=== PATIENT | female | born 1965 | race Caucasian/White ===

== ENCOUNTER → 2016-07-23 | Outpatient (CLI) | payer SELFPAY | END | disposition home or self-care (01) | LOC: YCFC.O 08:08 | PROVIDERS: ATTEND Anesthesiology Pain Medicine | DX: Z79.891 Long term (current) use of opiate analgesic (principal) ==

== ENCOUNTER → 2016-12-25 | Outpatient (CLI) | payer SELFPAY | END | disposition home or self-care (01) | LOC: YCFC.O 15:07 | PROVIDERS: ATTEND Anesthesiology Pain Medicine | DX: Z79.891 Long term (current) use of opiate analgesic (principal) ==

== ENCOUNTER → 2017-01-26 | Outpatient (CLI) | payer SELFPAY | END | disposition home or self-care (01) | LOC: YCFC.O 07:01 | PROVIDERS: ATTEND Nurse Practitioner Family | DX: E78.2 Mixed hyperlipidemia (principal); I10 Essential (primary) hypertension ==

== ENCOUNTER → 2017-03-19 | Outpatient (CLI) | payer SELFPAY | END | disposition home or self-care (01) | LOC: YCFC.O 15:21 | PROVIDERS: ATTEND Anesthesiology Pain Medicine | DX: Z79.891 Long term (current) use of opiate analgesic (principal) ==

== ENCOUNTER 2017-06-14 16:35 | Emergency (ER) | payer SELFPAY ==
--- NOTE | 2017-06-14 17:18 | ED.PDOC ---
History of Present Illness - General Chief Complaint: Abdominal Pain Stated Complaint: Abdominal discomfort Time Seen by Provider: 06/14/17 16:36 Information Source: patient Exam Limitations: no limitations - History of Present Illness Abdominal Pain Onset Location: RUQ, epigastric, flank Pain Radiation: no radiation, back Quality: moderate, sharpness Timing/Duration: days - 3 DAYS Improving Factors: nothing Worsening Factors: movement, other - PALPATION Associated Symptoms: nausea/vomiting Review of Systems - Review of Systems Constitutional: Denies: chills, diaphoresis, fever, malaise, weakness EENTM: Denies: double vision, ear discharge, throat swelling, mouth swelling Respiratory: Denies: cough, short of breath Cardiology: Denies: chest pain, palpitations, syncope Gastrointestinal/Abdominal: States: abdominal pain, nausea, vomiting. Denies: constipation, diarrhea Genitourinary: Denies: discharge, dysuria, frequency, hematuria Musculoskeletal: Denies: joint pain, joint swelling Skin: Denies: change in color, dryness Neurological: Denies: headache, numbness, paresthesia Endocrine: Denies: excessive sweating, increased hunger, increased thirst, increased urine Hematologic/Lymphatic: Denies: anemia, blood clots, easy bleeding, easy bruising All other Systems: Reviewed and Negative Past Medical History (General) - Patient Medical History Hx Stroke: No Hx Asthma: No Hx of COPD: No Hx Cardiac Disorders: Yes Hx Congestive Heart Failure: No Hx Pacemaker: No Hx Hypertension: Yes Hx Diabetes: Yes Hx MRSA: No Surgical History: appendectomy, tonsillectomy, other - Vaccination History Hx Influenza Vaccination: No Hx Pneumococcal Vaccination: No - Social History Hx Tobacco Use: Yes Family Medical History - Family History Mother Family History: Unknown Living Status: Unknown Physical Exam - Physical Exam General Appearance: Alert, Anxious, No apparent distress Eyes, Ears, Nose, Throat Exam: normal ENT inspection Neck: non-tender, full range of motion, supple, normal inspection Respiratory: chest non-tender, lungs clear, normal breath sounds, no respiratory distress, no accessory muscle use Cardiovascular/Chest: normal peripheral pulses, regular rate, rhythm Gastrointestinal/Abdominal: normal bowel sounds, soft, tenderness - MILD TENDERNESS TO THE RUQ/EPIGASTRIC REGION. 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 WOULD CONSIDER HEPATITIS, BILIARY DISEASE, ULCER, PANCREATITIS, UTI, PYELO, GASTRITIS, ENTERITIS, URETERAL COLIC. SHE HAS A NON SURGICAL ABD EXAM AT THIS TIME. 06/14/17 22:07 LABS ARE RELATIVELY UNREMARKABLE EXCEPT FOR THE UTI. WILL PUT ON MACROBID. - Results/Orders Results/Orders: Laboratory Results - last 24 hr 06/14/17 06/14/17 06/14/17 17:16 17:16 17:16 WBC 6.8 RBC 4.77 Hgb 14.5 Hct 41.9 MCV 87.9 MCH 30.3 MCHC 34.5 RDW 14.2 Plt Count 280 MPV 9.0 Absolute Neuts (auto) 2.20 Absolute Lymphs (auto) 3.70 H Absolute Monos (auto) 0.60 Absolute Eos (auto) 0.20 Absolute Basos (auto) 0.10 Neutrophils % 33.1 L Lymphocytes % 53.7 H Monocytes % 9.1 H Eosinophils % 3.0 Basophils % 1.1 Sodium 136 Potassium 3.9 Chloride 102 Carbon Dioxide 25 Anion Gap 12.9 BUN 10 Creatinine 0.99 BUN/Creatinine Ratio 10.1 Random Glucose 112 H Serum Osmolality 271.8 L Lactic Acid 0.8 Calcium 9.3 Total Bilirubin 0.3 AST 17 ALT 15 Alkaline Phosphatase 81 Serum Total Protein 7.1 Albumin 3.9 Globulin 3.2 Albumin/Globulin Ratio 1.2 Lipase 23 Urine Color Urine Appearance Urine pH Ur Specific [place] Urine Protein Urine Glucose (UA) Urine Ketones Urine Blood Urine Nitrite Urine Bilirubin Urine Urobilinogen Ur Leukocyte Esterase Urine RBC Urine WBC Ur Epithelial Cells Urine Bacteria 06/14/17 21:28 WBC RBC Hgb Hct MCV MCH MCHC RDW Plt Count MPV Absolute Neuts (auto) Absolute Lymphs (auto) Absolute Monos (auto) Absolute Eos (auto) Absolute Basos (auto) Neutrophils % Lymphocytes % Monocytes % Eosinophils % Basophils % Sodium Potassium Chloride Carbon Dioxide Anion Gap BUN Creatinine BUN/Creatinine Ratio Random Glucose Serum Osmolality Lactic Acid Calcium Total Bilirubin AST ALT Alkaline Phosphatase Serum Total Protein Albumin Globulin Albumin/Globulin Ratio Lipase Urine Color Yellow Urine Appearance Clear Urine pH 6.0 Ur Specific [place] <= 1.005 Urine Protein Negative Urine Glucose (UA) Negative Urine Ketones Negative Urine Blood Negative Urine Nitrite Negative Urine Bilirubin Negative Urine Urobilinogen 0.2 Ur Leukocyte Esterase Trace H Urine RBC 0-1 Urine WBC 1-3 Ur Epithelial Cells 3-5 Urine Bacteria 1+ Departure - Departure Clinical Impression: Abdominal pain Qualifiers: Abdominal location: generalized Qualified Code(s): R10.84 - Generalized abdominal pain UTI (urinary tract infection) Qualifiers: Urinary tract infection type: acute cystitis Hematuria presence: without hematuria Qualified Code(s): N30.00 - Acute cystitis without hematuria Clinical Impression: (Ruled Out): Pancreatitis, Appendicitis, Enteritis, Diarrhea, Acute colitis, Cholecystitis Time of Disposition: 22:04 Disposition: Discharge to Home or Self Care Condition: Good Departure Forms: ED Discharge - Pt. Copy, Patient Portal Self Enrollment Instructions: DI for Abdominal Pain-Adult Diet: resume usual diet Activity: increase activity as tolerated Referrals: Chey Solorio CRISIS INTERVENTION SPECIALIST [Primary Care Provider] - 1-2 Weeks Prescriptions: Dicyclomine HCl [Bentyl] 20 mg PO Q8HRS #12 tab Nitrofurantoin Monohydrate Mac [Macrobid] 100 mg PO BID #14 capsule Home Medications: Ambulatory Orders Omeprazole [Prilosec] 40 mg PO DAILY 06/30/13 HYDROcodone 10MG/APAP 325MG [[place] 10/325] 1 tab PO QID PRN 08/05/15 Levofloxacin [Levaquin] 500 mg PO QDPC #10 tab 02/15/16 Amitriptyline HCl [Elavil] 25 mg PO DAILY 02/28/16 Baclofen 20 mg PO BEDTIME 02/28/16 Clonazepam 1 mg PO BID 02/28/16 Gabapentin 600 mg PO TID 02/28/16 Hydroxychloroquine Sulfate [Hydroxychloroquine Sulfat] 200 mg PO DAILY 02/28/16 Metoprolol Succinate [Metoprolol Succinate ER] 25 mg PO DAILY 02/28/16 Ondansetron Odt [Zofran ODT] 4 mg PO .Q8H PRN 02/28/16 Dicyclomine HCl [Bentyl] 20 mg PO Q8HRS #12 tab 06/14/17 Nitrofurantoin Monohydrate Mac [Macrobid] 100 mg PO BID #14 capsule 03/02/18
--- NOTE | 2017-06-14 17:29 | RAD ---
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 No pneumoperitoneum. There is moderate volume stool burden. Mild levoscoliosis of the lumbar spine. Impression: Nonobstructive bowel gas pattern. Electronically signed by: Velasquez Lyles MD 06/14/2017 5:28 PM LOCKSMITH APPRENTICE
[2017-06-14 20:11] VITALS: O2SAT 98
[2017-06-14] MEDS ORDERED: ONDANSETRON INJ 4 MG/2 ML VIAL IV ONE (22:02)
[2017-06-14] MEDS ORDERED: MORPHINE SULFATE INJ 10 MG/ML VIAL IV ONE (22:02)
[2017-06-15 00:17] VITALS: BP 128/55; TEMP 97.4
== END 2017-06-14 22:50 | disposition home or self-care (01) ==
LOC: ER 16:35
DX: N30.00 Acute cystitis without hematuria (principal); R10.84 Generalized abdominal pain; I10 Essential (primary) hypertension; E11.9 Type 2 diabetes mellitus without complications
CPT/HCPCS: 36415; 74019; 80053; 81001; 83605; 83690; 85025; J2270; J2405

== ENCOUNTER → 2017-11-05 | Outpatient (CLI) | payer OTHER | LOC: YCFC.O 07:23 | PROVIDERS: ATTEND Nurse Practitioner Family | DX: I10 Essential (primary) hypertension (principal) ==

== ENCOUNTER → 2019-01-07 | Outpatient (CLI) | payer OTHER ==
--- NOTE | 2019-01-09 16:18 | CT ---
Procedure: CT LUNG SCREENING Exam Date: 01/07/2019. Ordering Provider: Jose Alfredo Francisco Clinical Indication: PERSONAL HISTORY OF TOBACCO USE This patient meets eligibility criteria for low-dose CT lung cancer screening. Comparison: Chest x-ray February 2016. Technique: Using a multislice scanner, sequential helical axial imaging was obtained in the thorax, 2.5 mm thickness, 2.5 mm separation, from the level of the thoracic inlet through the lung bases without IV contrast. A low dose protocol was utilized for BMI less than 30: BMI: 29. CTDI: 1.76 mGy. 120. kVp. 45 mA. DLP 60.99 mGy-centimeters. 2D sagittal and coronal reconstructed images, 6.0 mm thickness, were obtained. This exam was performed according to our departmental dose optimization program which includes use of automated exposure control, adjustment of the mA and/or kV according to patient size and/or use of iterative reconstruction technique. Nodule measurements under 10 mm are given as mean value of 3 axes diameters. FINDINGS: Lungs and large airways: Bilateral multiple parenchymal blebs posteriorly uniform in size in a centrilobular distribution, and more numerous in the bilateral upper lobes. 3.3 mm subpleural nodule versus focal pleural thickening medial right upper lobe near the apex on image 2/32. 3 mm para fissural nodule abutting the inferior right major fissure on image 2/74. Minimal pleural-parenchymal scarring base of the right middle lobe and inferior lingula. Pleura and space: Focal pleural thickening otherwise negative. Mediastinum and naomy: evaluation limited by low dose technique and lack of IV contrast. Unremarkable. Heart and great vessels: Coronary artery calcification. Atherosclerotic calcification in the aortic arch and proximal brachiocephalic vessels. Chest wall, lower neck, axillae: Evaluation also limited by same factors as described above. Unremarkable. Upper abdomen: Evaluation limited by low-dose technique. No free air or free fluid in the included peritoneal space. Osseous structures: Evaluation limited by low dose MIP technique. Minimal spondylosis in the thoracic spine. No lytic or blastic lesions. IMPRESSION: 1. Subpleural solid nodule less than 4 mm diameter, medial right upper lobe, versus focal medial pleural thickening 3 mm perifissural nodule inferior right major fissure. [facility] Best Practice recommendations: Please see below for Lung RADS category and FOLLOW-UP.* *Lung RADS category CATEGORY 2S- Nodules with a very low likelihood (less than 1%) of becoming a clinically active cancer due to size or lack of growth. Nodules: Perifissural nodule(s) < 10 mm. (526mm3). Solid or part solid nodule(s) less than 6mm (113.1 mm3), new solid nodule less than 4mm (33.5 mm3). Ground glass nodule(s) less than 30mm (55865.2 mm3) or unchanged or slow growing ground glass nodule 30mm or greater. Cat 3 or 4 nodule unchanged for 3 or more months. FOLLOW-UP: Continue annual screening with a Low Dose Chest CT in 12 months for re-evaluation. 2. No record of screening breast imaging at this facility. If patient not currently enrolled in a breast screening program in the past 12 months, consider enrolling patient in breast screening program at this facility. 3. Lung RADS Modifier S - Clinically Significant or Potentially Clinically Significant Findings (non lung cancer). Atherosclerotic calcifications in the coronary arteries. Consider CT coronary artery calcium scoring. Electronically signed by: Dave Barger MD 01/09/2019 4:17 PM CDT
== END ==
LOC: CT 15:30
PROVIDERS: ATTEND Family Medicine
DX: Z87.891 Personal history of nicotine dependence (principal); R91.8 Other nonspecific abnormal finding of lung field; I25.10 Atherosclerotic heart disease of native coronary artery without angina pectoris

== ENCOUNTER 2019-01-31 13:03 | Inpatient (IN) | payer SELFPAY ==
[2019-01-31] MEDS ORDERED: ACETAMINOPHEN 500 MG TAB PO ONE (13:26)
[2019-01-31] MEDS ORDERED: SODIUM CHLORIDE 0.9% (FLUSH) 10 ML SYG IV PRN (13:26)
[2019-01-31] MEDS ORDERED: cefTRIAXone SODIUM 2 GM in SODIUM CHL 0.9% 100ML MINI-BAG 100 ML IVPB ONE (13:26)
[2019-01-31] MEDS ORDERED: SODIUM CHLORIDE 0.9% 1000ML 1,000 ML IVS ONE (13:26)
--- NOTE | 2019-01-31 13:31 | ED.PDOC ---
History of Present Illness - General Time Seen by Provider: 01/31/19 13:22 - History of Present Illness Initial Comments: Pt is a 53 yo F with PMH of HTN presents to ED with friend for confusion, onset today. States she was babysitting her grand daughter and family came home and patient was stating that she needed to bake a cake for a wedding(which is not true). Pt states she felt normal when she awoke this morning, but became confused later on in the morning. Has had nonproductive cough, SOB. Has had chills, but did not take her temp at home. Denies MAY, stiff neck, weakness, slurred speech or facial droop. Allergies/Adverse Reactions: Allergies Codeine Adverse Reaction (Mild, Verified 01/31/19 18:38) Other itching Home Medications: Ambulatory Orders HYDROcodone 10MG/APAP 325MG [[place] [address]] 1 tab PO QID PRN 08/05/15 Amitriptyline HCl [Elavil] 100 mg PO DAILY 02/28/16 Ondansetron Odt [Zofran ODT] 4 mg PO .Q8H PRN 02/28/16 RX: Baclofen 20 mg PO BID 02/28/16 RX: Gabapentin 600 mg PO TID 02/28/16 Cyclobenzaprine HCl [Flexeril] 10 mg PO TID 01/31/19 Lisinopril & Hydrochlorothiazi [Lisinopril/Hctz 10-12.5 mg] 1 tab PO DAILY 01/31/19 Metformin HCl [Metformin HCl ER] 500 mg PO BID 01/31/19 RX: Diazepam 10 mg PO Q6HRS 01/31/19 RX: Diclofenac Potassium 50 mg PO TID 01/31/19 RX: Fenofibrate 160 mg PO DAILY 01/31/19 RX: Ibuprofen 800 mg PO BID PRN 01/31/19 RX: Metoprolol Tartrate 50 mg PO BID 01/31/19 RX: Paroxetine HCl 20 mg PO DAILY 01/31/19 Review of Systems - Review of Systems Constitutional: States: chills, malaise. Denies: weakness EENTM: Denies: blurred vision, ear pain, throat pain Respiratory: States: cough, short of breath Cardiology: Denies: chest pain, palpitations, syncope Gastrointestinal/Abdominal: Denies: abdominal pain, diarrhea, nausea, vomiting Musculoskeletal: Denies: muscle stiffness Neurological: Denies: headache, paresthesia, weakness Past Medical History (General) - Patient Medical History Hx Stroke: No Hx Asthma: No Hx of COPD: No Hx Cardiac Disorders: Yes Hx Congestive Heart Failure: No Hx Pacemaker: No Hx Hypertension: Yes Hx Diabetes: Yes Hx MRSA: No - Vaccination History Hx Influenza Vaccination: No Hx Pneumococcal Vaccination: No - Social History Hx Tobacco Use: Yes Family Medical History - Family History Mother Family History: Unknown Living Status: Unknown Physical Exam - Physical Exam General Appearance: Alert, Anxious, Other - Nontoxic appearing. Tearful as she talks about watching her grand daughter this morning when confusion began Eye Exam: bilateral normal - PERRL Ears, Nose, Throat: normal pharynx Neck: non-tender, full range of motion, supple, other - no meningismus Respiratory: chest non-tender, lungs clear, normal breath sounds, no respiratory distress Cardiovascular/Chest: normal peripheral pulses, regular rate, rhythm, no edema, no JVD Gastrointestinal/Abdominal: non tender, soft, no pulsatile mass Back Exam: normal inspection, no CVA tenderness, no vertebral tenderness Extremity: normal range of motion, non-tender, normal inspection Neurologic: other - Pt oriented to person and place. states year is 2000. knows Halloween is coming up. CN intact. Strength 5/5 x 4. Speech is clear. Able to name simple objects Skin Exam: normal color, warm/dry Progress - Progress Progress: 01/31/19 13:52 EKG Sinus tachycardia, rate 108, nml intervals, no ST abnormality 01/31/19 14:39 D/W Toan Oleary, hospitalist. Will admit Pt presents with cough, SOB x 2 days. Today has had fever and confusion. CXR shows LLL pneumonia. VS improved with IVF and Tylenol. BCx's sent. Pt has pneumonia, and ARF. Baseline creatnine is 0.9. Will admit for further treatment. - Results/Orders Results/Orders: 01/31/19 13:26 Telemetry .ONCE Sodium Chloride 0.9% (Flush) [Saline Flush Syringe] 10 ml IV PRN PRN EKG Stat Pulse Ox Stat 01/31/19 13:32 BLOOD CULTURE Stat 01/31/19 14:44 ED Intent to Admit Routine 02/01/19 01:30 LACTIC ACID Q2H 02/01/19 03:30 LACTIC ACID Q2H 02/01/19 05:30 LACTIC ACID Q2H 02/01/19 07:30 LACTIC ACID Q2H 02/01/19 09:30 LACTIC ACID Q2H 02/01/19 11:30 LACTIC ACID Q2H Laboratory Results - last 24 hr 01/31/19 01/31/19 01/31/19 13:32 13:32 13:32 WBC 15.0 H RBC 4.70 Hgb 13.7 Hct 40.4 MCV 86.0 MCH 29.2 MCHC 33.9 RDW 13.4 Plt Count 271 MPV 9.3 Absolute Neuts (auto) 13.00 H Absolute Lymphs (auto) 1.00 Absolute Monos (auto) 0.80 Absolute Eos (auto) 0.10 Absolute Basos (auto) 0.10 Neutrophils % 86.8 H Lymphocytes % 6.6 L Monocytes % 5.7 Eosinophils % 0.6 L Basophils % 0.3 PT 10.2 INR 1.02 PTT (SP) 23.2 Sodium 132 L Potassium 4.0 Chloride 96 L Carbon Dioxide 23 Anion Gap 17.0 BUN 27 H Creatinine 1.91 H BUN/Creatinine Ratio 14.1 Random Glucose 100 Serum Osmolality 269.7 L Lactic Acid Calcium 9.2 Total Bilirubin 0.3 AST 19 ALT 14 Alkaline Phosphatase 106 Creatine Kinase 38 CK-MB (CK-2) 1.0 CK-MB (CK-2) % Not Reportable Troponin I < 0.02 Serum Total Protein 7.1 Albumin 4.1 Globulin 3.0 Albumin/Globulin Ratio 1.4 01/31/19 13:32 WBC RBC Hgb Hct MCV MCH MCHC RDW Plt Count MPV Absolute Neuts (auto) Absolute Lymphs (auto) Absolute Monos (auto) Absolute Eos (auto) Absolute Basos (auto) Neutrophils % Lymphocytes % Monocytes % Eosinophils % Basophils % PT INR PTT (SP) Sodium Potassium Chloride Carbon Dioxide Anion Gap BUN Creatinine BUN/Creatinine Ratio Random Glucose Serum Osmolality Lactic Acid 1.7 Calcium Total Bilirubin AST ALT Alkaline Phosphatase Creatine Kinase CK-MB (CK-2) CK-MB (CK-2) % Troponin I Serum Total Protein Albumin Globulin Albumin/Globulin Ratio Departure - Departure Clinical Impression: Left lower lobe pneumonia, KENNA (acute kidney injury), Leukocytosis Time of Disposition: 14:42 Disposition: Admit Patient Condition: Fair Home Medications: Ambulatory Orders HYDROcodone 10MG/APAP 325MG [[place] 10] 1 tab PO QID PRN 08/05/15 Amitriptyline HCl [Elavil] 100 mg PO DAILY 02/28/16 Ondansetron Odt [Zofran ODT] 4 mg PO .Q8H PRN 02/28/16 RX: Baclofen 20 mg PO BID 02/28/16 RX: Gabapentin 600 mg PO TID 02/28/16 Cyclobenzaprine HCl [Flexeril] 10 mg PO TID 01/31/19 Lisinopril & Hydrochlorothiazi [Lisinopril/Hctz 10-12.5 mg] 1 tab PO DAILY 01/31/19 Metformin HCl [Metformin HCl ER] 500 mg PO BID 01/31/19 RX: Diazepam 10 mg PO Q6HRS 01/31/19 RX: Diclofenac Potassium 50 mg PO TID 01/31/19 RX: Fenofibrate 160 mg PO DAILY 01/31/19 RX: Ibuprofen 800 mg PO BID PRN 01/31/19 RX: Metoprolol Tartrate 50 mg PO BID 01/31/19 RX: Paroxetine HCl 20 mg PO DAILY 01/31/19 Decision To Admit - Decistion To Admit Decision to Admit Reason: Admit from ER Decision to Admit Date: 01/31/19 Decision to Admit Time: 14:43
[2019-01-31] MEDS ORDERED: SODIUM CHL 0.9% 100ML MINI-BAG 100 ML IVPB ONE (14:29)
--- NOTE | 2019-01-31 14:32 | RAD ---
EXAM DESCRIPTION: Chest,1 View CLINICAL HISTORY: 53 years Female, fever COMPARISON: 02/28/2016. TECHNIQUE: AP portable chest. FINDINGS/IMPRESSION: Homogeneous airspace opacity within the left mid and lower lung periphery extending centrally is concerning for pneumonia. Possible additional mild infiltrate within the right lower lung periphery. Mild central pulmonary vascular congestion. No significant pneumothorax or pleural effusion. The heart is normal in size. No acute osseous abnormality. Electronically signed by: Talha Rodrigez DO 01/31/2019 2:30 PM CDT
[2019-01-31] MEDS ORDERED: AZITHROMYCIN IV 500 MG in SODIUM CHLORIDE 0.9% 250ML 250 ML IVPB ONE (14:34)
--- NOTE | 2019-01-31 15:39 | HP ---
SUPERVISING PHYSICIAN: Rah Nix M.D. CHIEF COMPLAINT: Confusion. HISTORY OF PRESENT ILLNESS: Ms. Howard is a 53 year-old female patient with a past medical history of hypertension who presented to the E. R. today with a friend due to confusion with onset earlier today. It was noted that she had been babysitting her granddaughter and a family member came home and found her out in the yard and apparently she was taking about baking a cake for a wedding. The patient noted that she felt normal when she woke up this morning but became confused later in the morning. She had noted that she had been having a productive cough for several days with some greenish-looking sputum and some shortness of breath. She denied any actual chills but did have a fever on admission in the E. R. of 102. Her chest x-ray did show a left sided consolidation concerning for pneumonia. It was also noted that she had just started using a vaping system which she notes was a Juul within the last 4 months. Prior to that she was utilizing cigarettes. Her labs did show a leukocytosis of 15,000 with a left shift. Chemistries showed increased creatinine at 1.91 with the patient normally having a baseline of about 0.4. Lactic acid was normal at 1.7. Liver functions were all within normal limits. She did have a sodium that was a little low at 132. She was started on treatment for pneumonia with Rocephin and azithromycin. She also noted that she had been having a sore throat for the last several days. She is now being admitted for initiation of antibiotics for treatment of community acquired pneumonia. PAST MEDICAL HISTORY: 1. Hepatitis C with previously being treated but unsure if treated to cure. 2. Hypertension. 3. Chronic tobacco use now in the form of vaping with Juul. 4. History of migraine headaches. 5. Degenerative disc disease of the cervical spine. 6. Osteoarthritis. PAST SURGICAL HISTORY: 1. Tubal ligation in 1988. 2. Tonsillectomy in 1969. 3. Appendectomy in 1975. 4. Adenoidectomy in 1969. HOME MEDICATIONS: 1. Paroxetine 20 mg daily. 2. Metoprolol 50 mg b.i.d. 3. Metformin 500 mg b.i.d. 4. Lisinopril/Hydrochlorothiazide 10-12.5 one tablet daily. 5. Ibuprofen 800 mg b.i.d. 6. [place] 10/325 one q.i.d. p.r.n. 7. Gabapentin 600 mg t.i.d. 8. Fenofibrate 160 mg daily. 9. Diclofenac 50 mg t.i.d. 10. Diazepam 10 mg every 6 hours. 11. Flexeril 10 mg t.i.d. 12. Baclofen 20 mg b.i.d. 13. Elavil 100 mg daily. ALLERGIES: CODEINE. FAMILY HISTORY: Father is at 66 and had hypertension, diabetes and heart disease. Mother is healthy. She has 1 brother who had a stroke, cardiovascular disease and diabetes. One has rheumatoid arthritis and autoimmune disease. She had 2 that were from a motor vehicle crash. SOCIAL HISTORY: The patient has a history of smoking about 2 to 3 cigarettes but now currently utilizing a vaping system, specifically Juul. She noted that she started using the vaping system about 4 months previously. She does note that she does not drink alcohol or use any illicit drugs. She has previously worked as a [employer] but currently stays at home with [employer]. REVIEW OF SYSTEMS: CONSTITUTIONAL: Positive for general malaise, fevers, chills, generalized weakness. HEENT: Denied any ear aches, headaches, nasal congestion but does note that she has a sore throat. RESPIRATORY: Noted increase in productive cough with green sputum and some increasing shortness of breath. CARDIOVASCULAR: Denies any chest pains, palpitations or syncopal episodes. GASTROINTESTINAL: Denies any abdominal pains, diarrhea, nausea or vomiting. MUSCULOSKELETAL: Denies any muscle stiffness but has chronic joint aches and multiple arthritic type issues. NEUROLOGIC: She denied any headaches, paresthesias, weakness. As per History of Present Illness, some confusion but no focal motor deficits. PHYSICAL EXAMINATION: VITAL SIGNS: Temperature on admission was 102 with heart rate 111, blood pressure 102/82, respirations 20, satting 93% on room air. GENERAL: The patient is asleep initially on presentation but easily awakened. Does appear generally unwell but she appears to be comfortable in no acute distress. HEENT: Tympanic membranes are clear bilaterally. Oropharynx was pink with some mildly erythematous posterior pharyngeal and tonsils, but no obvious exudate. NECK: Non-tender. Full range of motion. No meningeal signs. There were some notable anterior adenopathies bilaterally. No jugular venous distention. CHEST: Lungs were fairly clear except for some coarseness heard on the left side more so prominent on the lateral posterior aspect with some mild inspiratory wheezing. CARDIOVASCULAR: Regular rate and rhythm with no appreciable murmurs, gallops, or rubs. ABDOMEN: Soft, non-tender with positive bowel sounds. EXTREMITIES: Without any edema. NEUROLOGIC: Cranial nerves II-XII are grossly intact. Facial features were symmetrical. Extraocular movements are within normal limits. She is alert and oriented times three. SKIN: Warm, pink and dry. LABORATORY: White count shows a leukocytosis of 15,000 with hemoglobin 13.7, hematocrit 40.4, platelet count 271,000. Differential does show a left shift. Coagulation studies showed normal PT and PTT. Chemistries showed just a mildly low sodium at 132, potassium 4, BUN 27, creatinine 1.91 with baseline creatinine level being around 0.4 to 0.8. Lactic acid was 1.7. Liver functions were all within normal limits. Urinalysis just showed 15 of ketones, small amount of bilirubin, otherwise within normal limits. MICROBIOLOGY: Blood cultures were pending. Influenza A and B by PCR was negative. Strep screen was pending. RADIOLOGY: Chest x-ray per radiology interpretation showed homogeneous airspace opacity with left mid and lower periphery extending centrally and concerning for pneumonia with a possible additional infiltrate within the right lower lung periphery. Please see that report for details. 12-lead EKG showed sinus tachycardia at [address] or T wave changes. ASSESSMENT: 1. Left sided pneumonia, community acquired, with a history of chronic tobacco abuse and recent initiation of vaping E-cigarette systems. 2. Sepsis secondary to developing pneumonia with noted leukocytosis, fever, tachycardia and increased creatinine levels from baseline on admission. 3. Renal insufficiency likely prerenal azotemia. 4. Confusion likely metabolic encephalopathy secondary to #1 showing improvement with initiation of antibiotics and fluids probably with some component due to chronic pain management and possible Benzodiazepines with sleep deprivation. 5. Mild electrolyte imbalance with hyponatremia probably due to developing pneumonia and Hydrochlorothiazide medication. 6. History of hepatis C with unknown treatment to cure. 7. Hypertension. 8. History of migraine headaches. 9. Degenerative disc disease of the lumbosacral and cervical region on chronic pain management with [place] and Gabapentin. 10. Diabetes mellitus type 2 with oral therapy. PLAN: Ms. Howard is going to be admitted for initiation of antibiotics for developing community acquired pneumonia. Once she was given antibiotics and some fluids shortly after admission her mental status did improve. Her mother was at bedside reporting that she was at her baseline levels, although the patient also notes that she is still having a little mild cloudy thinking. I did discuss with her smoking cessation needs as well as stopping utilizing the vaping system. Given the fact that she has pneumonia and is utilizing the vaping system, will go ahead and start her on some steroids given the recent problems with lung issues associated with vaping. She will be on DVT prophylaxis per protocol. Will have her on sliding scale as per insulin protocol. She is on antibiotics with Rocephin and azithromycin and aggressive pulmonary hygiene. Will await Strep screen results. Would anticipate her length of stay to be 2 to 3 days. Will repeat a chest x-ray and labs in the morning. Until we can transition her to outpatient management will continue to monitor and treat as needed. #[id number] [facility]
[2019-01-31] MEDS ORDERED: AZITHROMYCIN IV 500 MG VIAL IVPB ONE (16:23)
[2019-01-31] MEDS ORDERED: SODIUM CHLORIDE 0.9% 250ML 250 ML ONE (16:24)
[2019-01-31] MEDS ORDERED: IBUPROFEN 400 MG TAB PO PRN (18:32)
[2019-01-31] MEDS ORDERED: ALBUTEROL SULFATE 2.5 MG/3 ML VIAL NEB PRN (18:32)
[2019-01-31] MEDS ORDERED: DEXTROSE 50% 25 GM/50 ML SYG IV PRN (18:32)
[2019-01-31] MEDS ORDERED: MAGNESIUM HYDROXIDE 30 ML UD PO PRN (18:32)
[2019-01-31] MEDS ORDERED: ONDANSETRON INJ 4 MG/2 ML VIAL IV PRN (18:32)
[2019-01-31] MEDS ORDERED: GLUCAGON INJ 1 MG VIAL SUBCU PRN (18:32)
[2019-01-31] MEDS ORDERED: ACETAMINOPHEN 325 MG TAB PO PRN (18:32)
[2019-01-31] MEDS ORDERED: IV SET AND CAP CHANGE INJ INJ SCH (19:00)
[2019-01-31] MEDS ORDERED: methylPREDNISolone SODIUM SUC 125 MG/2 ML VIAL IV ONE (19:15)
[2019-01-31] MEDS: SODIUM CHLORIDE 0.9% (FLUSH) 10 ML SYG IV PRN (20:06)
[2019-01-31] MEDS: IPRATROPIUM/ALBUTEROL 3 ML VIAL INH SCH (20:20)
[2019-01-31] MEDS: ENOXAPARIN SODIUM 40 MG/0.4 ML SYG SUBCU SCH (21:20)
[2019-01-31] MEDS: INSULIN LISPRO 100 UNITS/ML PEN SUBCU SCH (21:21)
[2019-01-31] MEDS: NICOTINE PATCH 14 MG TD SCH (21:21)
[2019-02-01] MEDS: IPRATROPIUM/ALBUTEROL 3 ML VIAL INH SCH ×3 (00:05→08:00)
[2019-02-01] MEDS: SODIUM CHLORIDE 0.9% (FLUSH) 10 ML SYG IV PRN (01:50)
[2019-02-01] MEDS ORDERED: methylPREDNISolone SODIUM SUC 40 MG/ML VIAL IV SCH (02:00)
[2019-02-01] MEDS: SODIUM CHLORIDE 0.9% 1000ML 1,000 ML IVS PRN ×2 (05:33→21:29)
[2019-02-01] MEDS: PANTOPRAZOLE SODIUM IV 40 MG VIAL IV SCH (05:34)
[2019-02-01] MEDS ORDERED: KETOROLAC TROMETHAMINE INJ 30 MG/ML VIAL IV ONE (06:27)
[2019-02-01] MEDS: HYDROcodone 10MG/APAP 325MG 1 EA TAB PO PRN ×3 (06:35→21:28)
--- NOTE | 2019-02-01 07:09 | RAD ---
CHEST, TWO VIEW, XR CLINICAL HISTORY: Pneumonia COMPARISON: Chest 01/31/2019 TECHNIQUE: Frontal and lateral Chest. FINDINGS: Patchy airspace densities are faintly visualized within the left upper lobe including the lingula. These have decreased. There is right middle lobe and inferior left lower lobe atelectasis. There is no pleural fluid or pneumothorax. No edema. Heart is normal in size. Lungs are hyperinflated. Mild generalized thoracic spondylosis. Normal soft tissues. IMPRESSION: 1. Persistent but improving left upper lobe and lingula pneumonia. 2. Hyperinflation. Electronically signed by: Diana Trevizo DO 02/01/2019 7:08 AM CDT
[2019-02-01] MEDS: INSULIN LISPRO 100 UNITS/ML PEN SUBCU SCH ×4 (07:29→23:02)
[2019-02-01] MEDS ORDERED: methylPREDNISolone SODIUM SUC 40 MG/ML VIAL IV ONE (08:00)
[2019-02-01] MEDS ORDERED: methylPREDNISolone SODIUM SUC 40 MG/ML VIAL ONE (08:12)
[2019-02-01] MEDS ORDERED: AZITHROMYCIN IV 500 MG VIAL IVPB ONE (08:13)
[2019-02-01] MEDS ORDERED: SODIUM CHLORIDE 0.9% 250ML 250 ML ONE (08:13)
[2019-02-01] MEDS: AZITHROMYCIN IV 500 MG in SODIUM CHLORIDE 0.9% 250ML 250 ML IVPB SCH (08:17)
[2019-02-01] MEDS: NICOTINE PATCH 14 MG TD SCH (08:27)
[2019-02-01] MEDS ORDERED: NON-FORMULARY MEDICATION 1 EA MIS (Metformin Hcl [Metformin Hcl Er] 500 MG) PO SCH (09:00)
[2019-02-01] MEDS ORDERED: NON-FORMULARY MEDICATION 1 EA MIS (Lisinopril & Hydrochlorothiazi [Lisinopril/Hctz 10-12.5 PO SCH (09:00)
[2019-02-01] MEDS ORDERED: metFORMIN XR 500 MG TAB.ER.24 PO ONE (09:44)
[2019-02-01] MEDS: AMITRIPTYLINE HCL 25 MG TAB PO SCH (09:46)
[2019-02-01] MEDS: LISINOPRIL 10 MG TAB PO SCH (09:47)
[2019-02-01] MEDS: BACLOFEN 10 MG TAB PO SCH ×2 (09:47→21:29)
[2019-02-01] MEDS: FENOFIBRIC ACID 135 MG CAP PO SCH (09:47)
[2019-02-01] MEDS: hydroCHLOROthiazide 12.5 MG CAP PO SCH (09:47)
[2019-02-01] MEDS: METOPROLOL TARTRATE 50 MG TAB PO SCH ×2 (09:47→17:15)
[2019-02-01] MEDS: metFORMIN XR 500 MG TAB.ER.24 PO SCH ×2 (09:47→17:15)
[2019-02-01] MEDS: GABAPENTIN 300 MG CAP PO SCH ×3 (09:47→21:29)
[2019-02-01] MEDS: PARoxetine HCL 20 MG TAB PO SCH (09:48)
[2019-02-01] MEDS: NON-FORMULARY MEDICATION 1 EA MIS (Diclofenac Potassium [Diclofenac Potassium] 50 MG) PO SCH ×3 (09:51→21:27)
[2019-02-01] MEDS ORDERED: cefTRIAXone SODIUM 1 GM in SODIUM CHL 0.9% 50ML MIN-BAG+ 50 ML IVPB SCH (10:00)
[2019-02-01] MEDS ORDERED: SODIUM CHL 0.9% 50ML MIN-BAG+ 50 ML IVPB ONE (11:46)
[2019-02-01] MEDS ORDERED: cefTRIAXone SODIUM 1 GM VIAL ONE (11:46)
[2019-02-01] MEDS ORDERED: ASPIRIN/ACETAMINOPHEN/CAFFEINE 1 EA TAB PO PRN (11:57)
[2019-02-01] MEDS: IPRATROPIUM/ALBUTEROL 3 ML VIAL NEB SCH ×3 (12:36→20:20)
[2019-02-01] MEDS: KETOROLAC TROMETHAMINE INJ 30 MG/ML VIAL IV SCH ×3 (12:37→23:51)
--- NOTE | 2019-02-01 15:23 | PN ---
DATE: 02/01/19 SUPERVISING PHYSICIAN: Rah Nix MD SUBJECTIVE: The patient is much more alert this morning. She notes her breathing has improved. She has had no recurrence of fever. She has had no further complaints. OBJECTIVE: VITAL SIGNS: T-max since admission in Emergency Room was 98.8, pulse 96, blood pressure 151/84, respirations 18, oxygen saturation 96% on 2 liters nasal cannula. GENERAL: The patient is resting comfortable and appears to be in no acute distress. She is alert. CHEST: Lung sounds are improved with breath sounds notably coarse on the left posterior lateral aspect. No lesion is noted. HEART: Regular rate and rhythm. ABDOMEN: Soft, non-tender, positive bowel sound. EXTREMITIES: Without ede4ma. NEUROLOGIC: Alert and oriented x 3. LABORATORY: White count 7,500, hemoglobin 13.2, hematocrit 39.7, platelet count 275,000, differential shows a left shift and again, she was started on steroids. Chemistries showed normal electrolytes with anion gap of 19.6, BUN 20, creatinine 0.99, blood sugar ranging between 137 and 233. Calcium 9.4. She did have a group A strep screen that was negative. RADIOLOGY: Repeat chest x-ray 2-view shows persistent but improvement in the left upper lobe and lingual pneumonia with hyperventilation. ASSESSMENT: 1. Left sided pneumonia, community acquired, with a history of chronic tobacco abuse and recent initiation of vaping E-cigarette systems. 2. Sepsis secondary to #1. . 3. Renal insufficiency resolved with fluids. . 4. Metabolic encephalopathy with confusion secondary to #1, improved with treatment. 5. Mild electrolyte imbalance with hyponatremia, resolved and back to baseline levels with treatment, probably due to underlying pneumonia and chronic use of Hydrochlorothiazide. 6. History of hepatis C with unknown treatment to cure. 7. Hypertension. 8. History of migraine headaches. 9. Degenerative disc disease of the lumbosacral and cervical region on chronic pain management with [place] and Gabapentin. 10. Diabetes mellitus type 2 with oral therapy. PLAN: Will continue with current plan of care at this point with antibiotics to include Rocephin and azithromycin. Given that she is utilizing the vaping system and has been for the last 4 months, we will go ahead and continue her steroids and taper those down. Anticipate discharging hopefully tomorrow or Saturday. This is in response to recent problems with lung issues and morbidities due to vaping and recommendations per State and CDC. Again, anticipate hopefully discharging in the next 2 or 3 days. She has been afebrile now for 24 hours. Blood cultures remain negative. We will go ahead and hold off on chest x-ray, she is showing improvement today. Will go ahead and do a CBC and BMP. Until we can transition her to outpatient management, we will continue to monitor and treat as needed. #[id number] [facility]
[2019-02-01] MEDS: ENOXAPARIN SODIUM 40 MG/0.4 ML SYG SUBCU SCH (21:29)
[2019-02-02] MEDS: IPRATROPIUM/ALBUTEROL 3 ML VIAL NEB SCH ×2 (00:41→08:40)
[2019-02-02] MEDS: HYDROcodone 10MG/APAP 325MG 1 EA TAB PO PRN (01:48)
[2019-02-02] MEDS: KETOROLAC TROMETHAMINE INJ 30 MG/ML VIAL IV SCH (05:44)
[2019-02-02] MEDS: SODIUM CHLORIDE 0.9% (FLUSH) 10 ML SYG IV PRN (06:07)
[2019-02-02] MEDS: PANTOPRAZOLE SODIUM IV 40 MG VIAL IV SCH (06:07)
[2019-02-02] MEDS: INSULIN LISPRO 100 UNITS/ML PEN SUBCU SCH (07:14)
[2019-02-02] MEDS ORDERED: SODIUM CHLORIDE 0.9% 250ML 250 ML ONE (07:33)
[2019-02-02] MEDS ORDERED: AZITHROMYCIN IV 500 MG VIAL IVPB ONE (07:34)
[2019-02-02] MEDS: metFORMIN XR 500 MG TAB.ER.24 PO SCH (07:48)
[2019-02-02] MEDS: AZITHROMYCIN IV 500 MG in SODIUM CHLORIDE 0.9% 250ML 250 ML IVPB SCH (07:48)
[2019-02-02] MEDS: METOPROLOL TARTRATE 50 MG TAB PO SCH (07:48)
[2019-02-02] MEDS ORDERED: SODIUM CHL 0.9% 50ML MIN-BAG+ 0 ML IVPB ONE (08:03)
[2019-02-02] MEDS ORDERED: cefTRIAXone SODIUM 1 GM VIAL ONE (08:04)
[2019-02-02] MEDS: NON-FORMULARY MEDICATION 1 EA MIS (Diclofenac Potassium [Diclofenac Potassium] 50 MG) PO SCH (08:38)
[2019-02-02] MEDS: NICOTINE PATCH 14 MG TD SCH (08:41)
[2019-02-02] MEDS: PARoxetine HCL 20 MG TAB PO SCH (08:41)
[2019-02-02] MEDS: AMITRIPTYLINE HCL 25 MG TAB PO SCH (08:42)
[2019-02-02] MEDS: FENOFIBRIC ACID 135 MG CAP PO SCH (08:42)
[2019-02-02] MEDS: BACLOFEN 10 MG TAB PO SCH (08:42)
[2019-02-02] MEDS: GABAPENTIN 300 MG CAP PO SCH (08:42)
[2019-02-02] MEDS ORDERED: predniSONE 20 MG TAB PO SCH (09:00)
[2019-02-02] MEDS: hydroCHLOROthiazide 12.5 MG CAP PO SCH (09:21)
[2019-02-02] MEDS: LISINOPRIL 10 MG TAB PO SCH (09:21)
[2019-02-02 10:38] VITALS: O2SAT 99
[2019-02-02 10:48] VITALS: BP 124/75; TEMP 98.1
--- NOTE | 2019-02-02 11:10 | DS ---
SUPERVISING PHYSICIAN: Alejandro Hilario MD ADMISSION DIAGNOSIS: 1. Left sided pneumonia, 2. Sepsis secondary to #1. 3. Renal insufficiency. 4. Confusion. 5. Electrolyte imbalance. 6. History of hepatis C. 7. Hypertension. 8. History of migraine headaches. 9. Degenerative disc disease. 10. Diabetes mellitus, type 2. DISCHARGE DIAGNOSIS: 1. Left sided pneumonia, 2. Sepsis secondary to #1. 3. Renal insufficiency. 4. Confusion. 5. Electrolyte imbalance. 6. History of hepatis C. 7. Hypertension. 8. History of migraine headaches. 9. Degenerative disc disease. 10. Diabetes mellitus, type 2. HOSPITAL COURSE: This is a 53-year-old female who presented to the ER with a friend due to confusion that started earlier in the day prior to admission. She was babysitting her granddaughter and a family member came and found her out in the front yard apparently talking about baking a cake for a wedding. She states she felt normal and she woke up in the morning and became confused later in the day. In the Emergency Room, she dd have some greenish colored sputum. She had a fever of 102 as well. Chest x-ray showed a left sided consolidation concerning for pneumonia. White count was 15,000. Lactic acid was 1.7. Crepitus was 1.91. She was admitted for pneumonia and given hydration. Her mentation resolved to normal. Over the two days of admission, she was administered antibiotics and did well with those. She has been afebrile for about 48 hours prior to discharge today. She feels back to her baseline status as well. She is not having any wheezing today. There is a question of whether or not she does have chronic obstructive pulmonary disease due to history of current tobacco smoking and she currently vapes. However, no spirometries have been done as of yet. PLAN: The patient is discharged today stable condition. She is to followup with her primary care physician in one week. Her discharge medications will include a tapering dose of prednisone along with an albuterol inhaler and doxycycline for her infectious process. [id number] [facility]
[2019-02-03] MEDS ORDERED: PANTOPRAZOLE SODIUM TAB 40 MG PO SCH (06:30)
== END 2019-02-02 10:25 | disposition home or self-care (01) | DRG 871 ==
LOC: ER 13:03 → OBSVTOIN 15:38 → MS 15:38
PROVIDERS: ADMIT Nurse Practitioner Family; ATTEND Nurse Practitioner
DX: A41.9 Sepsis, unspecified organism (principal); J18.9 Pneumonia, unspecified organism; J44.0 Chronic obstructive pulmonary disease with (acute) lower respiratory infection; G93.41 Metabolic encephalopathy; E87.1 Hypo-osmolality and hyponatremia; N17.9 Acute kidney failure, unspecified; F41.9 Anxiety disorder, unspecified; I10 Essential (primary) hypertension; E11.9 Type 2 diabetes mellitus without complications; B19.20 Unspecified viral hepatitis C without hepatic coma; G89.29 Other chronic pain; M51.37 Other intervertebral disc degeneration, lumbosacral region; F17.290 Nicotine dependence, other tobacco product, uncomplicated; M19.90 Unspecified osteoarthritis, unspecified site; M50.30 Other cervical disc degeneration, unspecified cervical region; Z79.84 Long term (current) use of oral hypoglycemic drugs; Z79.1 Long term (current) use of non-steroidal anti-inflammatories (NSAID); Z79.891 Long term (current) use of opiate analgesic; Z88.5 Allergy status to narcotic agent; Z79.899 Other long term (current) drug therapy

== ENCOUNTER 2019-02-16 17:12 | Emergency (ER) | payer SELFPAY ==
[2019-02-16] MEDS ORDERED: SODIUM CHLORIDE 0.9% (FLUSH) 10 ML SYG IV PRN (19:23)
[2019-02-16] MEDS ORDERED: SODIUM CHLORIDE 0.9% 1000ML 1,000 ML IVS ONE (19:23)
[2019-02-16] MEDS ORDERED: ACETAMINOPHEN IV 1000MG 1,000 MG in PREMIX BOTTLE 1 BOTTLE IVPB ONE (19:24)
[2019-02-16] MEDS ORDERED: CEFEPIME 2 GM in SODIUM CHL 0.9% 50ML MIN-BAG+ 50 ML IVPB ONE (19:24)
--- NOTE | 2019-02-16 19:26 | ED.PDOC ---
History of Present Illness - General Chief Complaint: Possible Sepsis Time Seen by Provider: 02/16/19 18:38 - History of Present Illness Initial Comments: 53 yo F who presents for fever and continued cough. Pt states she was recently admitted for pneumonia, was on IV antibiotics and completed a po course of antibx at discharge, she completed the regimen however has remained with a persistent dry cough and fever, Tmax on arrival. Denies congestion, runny nose, MAY, neck pain, neck stiffness, CP, SOB, abd pain, n/v/d, edema, urinary sx. Allergies/Adverse Reactions: Allergies Codeine Adverse Reaction (Mild, Verified 01/31/19 18:38) Other itching Home Medications: Ambulatory Orders HYDROcodone 10MG/APAP 325MG [Foster 10] 1 tab PO QID PRN 08/05/15 Amitriptyline HCl [Elavil] 100 mg PO DAILY 02/28/16 Baclofen 20 mg PO BID 02/28/16 Gabapentin 600 mg PO TID 02/28/16 Ondansetron Odt [Zofran Odt] 4 mg PO .Q8H PRN 02/28/16 Cyclobenzaprine HCl [Flexeril] 10 mg PO TID 01/31/19 Diclofenac Potassium 50 mg PO TID 01/31/19 Fenofibrate 160 mg PO DAILY 01/31/19 Ibuprofen 800 mg PO BID PRN 01/31/19 Lisinopril & Hydrochlorothiazi [Lisinopril/Hctz 10-12.5 mg] 1 tab PO DAILY 01/31/19 Metformin HCl [Metformin HCl ER] 500 mg PO BID 01/31/19 Metoprolol Tartrate 50 mg PO BID 01/31/19 Paroxetine HCl 20 mg PO DAILY 01/31/19 Diazepam 02/01/19 Albuterol Sulfate [Albuterol Sulfate Hfa] 2 inh INH QID 30 Days #1 aer 02/02/19 Doxycycline (Monohydrate) [Doxycycline Monohydrate] 100 mg PO BID 7 Days #14 tab 02/02/19 predniSONE 40 mg PO DAILY 30 Days #30 tab 02/02/19 Azithromycin Tab [Zithromax Tab] 250 mg PO DAILY 5 Days #6 tab 02/16/19 Review of Systems - Review of Systems Constitutional: States: fever. Denies: chills EENTM: Denies: ear pain, nose congestion, throat pain Respiratory: States: cough. Denies: short of breath, wheezing Cardiology: Denies: chest pain, edema, palpitations Gastrointestinal/Abdominal: Denies: abdominal pain, diarrhea, nausea, vomiting Genitourinary: Denies: discharge, dysuria, frequency, hematuria Musculoskeletal: Denies: back pain, joint swelling, neck pain Skin: Denies: change in color, rash Neurological: Denies: headache, numbness, weakness Past Medical History (General) - Patient Medical History Hx Seizures: No Hx Stroke: No Hx Asthma: No Hx of COPD: No Hx Cardiac Disorders: Yes Hx Congestive Heart Failure: No Hx Pacemaker: No Hx Hypertension: Yes Hx Diabetes: Yes Hx MRSA: No - Vaccination History Hx Influenza Vaccination: No Hx Pneumococcal Vaccination: No - Social History Hx Tobacco Use: Yes Hx Alcohol Use: Yes - states long time ago 20yr Hx Substance Use: Yes - " same" Hx Physical Abuse: No Hx Emotional Abuse: No Family Medical History - Family History Mother Family History: Unknown Living Status: Unknown Physical Exam - Physical Exam General Appearance: Alert, No apparent distress Eye Exam: bilateral normal Ears, Nose, Throat: hearing grossly normal, normal ENT inspection, normal pharynx Neck: non-tender, full range of motion, supple, normal inspection Respiratory: chest non-tender, lungs clear, normal breath sounds, no respiratory distress, no accessory muscle use Cardiovascular/Chest: normal peripheral pulses, no edema, no gallop, no JVD, no murmur, tachycardia Peripheral Pulses: radial,right: 2+, radial,left: 2+ Gastrointestinal/Abdominal: normal bowel sounds, non tender, soft, no organomegaly, no pulsatile mass Back Exam: normal inspection, no CVA tenderness, no vertebral tenderness Extremity: normal range of motion, non-tender, normal inspection, no pedal edema, no calf tenderness Neurologic: no motor/sensory deficits, alert Skin Exam: normal color, other - no rash or wounds Lymphatic: no adenopathy Progress - Progress Progress: Vital Signs - 24 hr 02/16/19 02/16/19 02/16/19 19:00 20:00 21:00 Temperature 100.3 F H Pulse Rate [ 118 H 115 H 110 H monitor] Respiratory 20 18 18 Rate Blood Pressure 120/95 121/73 118/78 [Right Arm] O2 Sat by Pulse 95 95 94 L Oximetry 02/16/19 02/16/19 02/16/19 21:34 22:00 23:00 Temperature 98.1 F Pulse Rate [ 109 H 106 H 98 H monitor] Respiratory 18 20 16 Rate Blood Pressure 116/75 128/75 109/76 [Right Arm] O2 Sat by Pulse 92 L 97 97 Oximetry 02/16/19 23:30 Temperature 97.1 F L Pulse Rate [ 96 H monitor] Respiratory 18 Rate Blood Pressure 111/71 [Right Arm] O2 Sat by Pulse 96 Oximetry 02/16/19 19:26 Code sepsis activated. 02/16/19 20:30 Pt is resting comfortably, updated pt and counter hop. 02/16/19 22:00 Pt is doing well, resting comfortably, VS improved. Sepsis exam completed. 02/16/19 23:15 I have explained and reviewed all results with the pt. I explained that emergent conditions may arise and to return to the ER for new, worsening, or any persistent conditions. I've explained the importance of f/u for recheck. All questions and concerns addressed at this time. Pt understands and agrees with plan. Pt well appearing, NAD, is stable for discharge. Alka Sanchez MD Emergency Medicine Physician Billing Number [id number] - Results/Orders Results/Orders: 02/16/19 18:14 Urine Culture Stat 02/16/19 18:45 EKG STAT 02/16/19 19:23 IV Care:Saline Lock per Protoc QSHIFT Telemetry .ONCE BLOOD CULTURE Stat EKG Stat Pulse Ox Stat 02/16/19 19:24 Pulse Oximetry Assessment DAILY Laboratory Results - last 24 hr 02/16/19 02/16/19 02/16/19 18:14 19:15 19:15 WBC 10.5 RBC 4.34 Hgb 12.7 Hct 37.1 MCV 85.6 MCH 29.2 MCHC 34.1 RDW 13.7 Plt Count 252 MPV 8.9 Absolute Neuts (auto) 5.50 Absolute Lymphs (auto) 3.20 Absolute Monos (auto) 1.40 H Absolute Eos (auto) 0.20 Absolute Basos (auto) 0.10 Neutrophils % 52.2 Lymphocytes % 30.9 Monocytes % 13.6 H Eosinophils % 1.9 Basophils % 1.4 PT INR PTT (SP) Sodium 134 L Potassium 4.3 Chloride 97 L Carbon Dioxide 26 Anion Gap 15.3 BUN 8 Creatinine 0.86 BUN/Creatinine Ratio 9.3 L Random Glucose 124 H Serum Osmolality 268.0 L Lactic Acid Calcium 9.6 Total Bilirubin 0.6 AST 42 ALT 40 Alkaline Phosphatase 134 H Serum Total Protein 7.3 Albumin 3.7 Globulin 3.6 H Albumin/Globulin Ratio 1.0 L Urine Color Yellow Urine Appearance Clear Urine pH 7.5 Ur Specific [place] 1.015 Urine Protein Negative Urine Glucose (UA) Negative Urine Ketones Negative Urine Blood Negative Urine Nitrite Negative Urine Bilirubin Negative Urine Urobilinogen 0.2 Ur Leukocyte Esterase Small H Urine RBC 1-3 Urine WBC 0-1 Ur Epithelial Cells 1-3 Amorphous Sediment 1+ Urine Bacteria 0 02/16/19 02/16/19 19:15 20:15 WBC RBC Hgb Hct MCV MCH MCHC RDW Plt Count MPV Absolute Neuts (auto) Absolute Lymphs (auto) Absolute Monos (auto) Absolute Eos (auto) Absolute Basos (auto) Neutrophils % Lymphocytes % Monocytes % Eosinophils % Basophils % PT 9.7 INR 0.97 PTT (SP) 26.4 Sodium Potassium Chloride Carbon Dioxide Anion Gap BUN Creatinine BUN/Creatinine Ratio Random Glucose Serum Osmolality Lactic Acid 1.2 Calcium Total Bilirubin AST ALT Alkaline Phosphatase Serum Total Protein Albumin Globulin Albumin/Globulin Ratio Urine Color Urine Appearance Urine pH Ur Specific [place] Urine Protein Urine Glucose (UA) Urine Ketones Urine Blood Urine Nitrite Urine Bilirubin Urine Urobilinogen Ur Leukocyte Esterase Urine RBC Urine WBC Ur Epithelial Cells Amorphous Sediment Urine Bacteria Microbiology 02/16/19 21:50 Influenza Types A & B (PCR) - Final Nose Neg CXR: EXAM: PA and LATERAL CHEST RADIOGRAPHS CLINICAL INDICATION: Cough. COMPARISON: Compared to the chest radiographs of February 01, 2019. FINDINGS: Cardiac size and pulmonary vasculature are normal. Near-complete resolution of left pulmonary consolidations. Lungs are otherwise clear. No pleural effusions, pneumothorax or free peritoneal gas. No suspicious hilar or mediastinal lymphadenopathy. Bones are intact on these two views. IMPRESSION: Near complete resolution of left pulmonary consolidations since the February 01, 2019 chest radiograph. Electronically signed by: John Salgado MD 02/16/2019 8:18 PM [employer] [facility] - EKG/XRAY/CT EKG: Sinus, Tachy, no ST T wave changes Departure - Departure Clinical Impression: Lower respiratory infection Time of Disposition: 23:08 Disposition: Discharge to Home or Self Care Health Concerns: Condition: stable Departure Forms: ED Discharge - Pt. Copy, Patient Portal Self Enrollment Instructions: Pneumonia, Adult (DC) Referrals: Arina Alberts FNP [Primary Care Provider] - 1-2 Days Prescriptions: Azithromycin Tab [Zithromax Tab] 250 mg PO DAILY 5 Days #6 tab Home Medications: Ambulatory Orders HYDROcodone 10MG/APAP 325MG [Foster 10] 1 tab PO QID PRN 08/05/15 Amitriptyline HCl [Elavil] 100 mg PO DAILY 02/28/16 Baclofen 20 mg PO BID 02/28/16 Gabapentin 600 mg PO TID 02/28/16 Ondansetron Odt [Zofran Odt] 4 mg PO .Q8H PRN 02/28/16 Cyclobenzaprine HCl [Flexeril] 10 mg PO TID 01/31/19 Diclofenac Potassium 50 mg PO TID 01/31/19 Fenofibrate 160 mg PO DAILY 01/31/19 Ibuprofen 800 mg PO BID PRN 01/31/19 Lisinopril & Hydrochlorothiazi [Lisinopril/Hctz 10-12.5 mg] 1 tab PO DAILY 01/31/19 Metformin HCl [Metformin HCl ER] 500 mg PO BID 01/31/19 Metoprolol Tartrate 50 mg PO BID 01/31/19 Paroxetine HCl 20 mg PO DAILY 01/31/19 Diazepam 02/01/19 Albuterol Sulfate [Albuterol Sulfate Hfa] 2 inh INH QID 30 Days #1 aer 02/02/19 Doxycycline (Monohydrate) [Doxycycline Monohydrate] 100 mg PO BID 7 Days #14 tab 02/02/19 predniSONE 40 mg PO DAILY 30 Days #30 tab 02/02/19 Azithromycin Tab [Zithromax Tab] 250 mg PO DAILY 5 Days #6 tab 02/16/19
[2019-02-16] MEDS ORDERED: SODIUM CHL 0.9% 50ML MIN-BAG+ 50 ML IVPB ONE (19:59)
[2019-02-16] MEDS ORDERED: CEFEPIME 2 GM VIAL ONE (19:59)
[2019-02-16] MEDS ORDERED: ACETAMINOPHEN IV 1000MG 100 ML ONE (20:02)
--- NOTE | 2019-02-16 20:19 | RAD ---
EXAM: PA and LATERAL CHEST RADIOGRAPHS CLINICAL INDICATION: Cough. COMPARISON: Compared to the chest radiographs of February 01, 2019. FINDINGS: Cardiac size and pulmonary vasculature are normal. Near-complete resolution of left pulmonary consolidations. Lungs are otherwise clear. No pleural effusions, pneumothorax or free peritoneal gas. No suspicious hilar or mediastinal lymphadenopathy. Bones are intact on these two views. IMPRESSION: Near complete resolution of left pulmonary consolidations since the February 01, 2019 chest radiograph. Electronically signed by: John Salgado MD 02/16/2019 8:18 PM [facility]
[2019-02-16 23:47] VITALS: BP 111/71; TEMP 97.1; O2SAT 96
== END 2019-02-16 23:30 | disposition home or self-care (01) ==
LOC: ER 17:12
DX: J22 Unspecified acute lower respiratory infection (principal); R00.0 Tachycardia, unspecified; I51.9 Heart disease, unspecified; I10 Essential (primary) hypertension; E11.9 Type 2 diabetes mellitus without complications; Z87.891 Personal history of nicotine dependence; Z87.01 Personal history of pneumonia (recurrent); Z79.899 Other long term (current) drug therapy; Z79.84 Long term (current) use of oral hypoglycemic drugs; Z88.5 Allergy status to narcotic agent
CPT/HCPCS: 36415; 71046; 80053; 81001; 83605; 85025; 85610; 85730; 87040; 87086; 87502; 93005; J0692; J7030; J7050

== ENCOUNTER 2019-02-19 06:31 | Inpatient (IN) | payer SELFPAY ==
[2019-02-19] MEDS ORDERED: SODIUM CHLORIDE 0.9% 1000ML 1,000 ML IVS ONE ×2 (06:59→07:50)
[2019-02-19] MEDS ORDERED: methylPREDNISolone SODIUM SUC 125 MG/2 ML VIAL IV ONE (07:01)
[2019-02-19] MEDS ORDERED: levoFLOXacin 750MG IV 750 MG in PREMIX BAG 1 BAG IVPB ONE (07:01)
[2019-02-19] MEDS ORDERED: IPRATROPIUM/ALBUTEROL 3 ML VIAL NEB ONE ×3 (07:01→09:03)
[2019-02-19] MEDS ORDERED: ACETAMINOPHEN 500 MG TAB PO ONE (07:05)
[2019-02-19] MEDS ORDERED: SODIUM CHLORIDE 0.9% (FLUSH) 10 ML SYG IV PRN ×2 (07:05→10:04)
--- NOTE | 2019-02-19 07:12 | ED.PDOC ---
History of Present Illness - General Chief Complaint: Respiratory Problem Stated Complaint: difficulty breathing Time Seen by Provider: 02/19/19 06:36 Source: family Exam Limitations: clinical condition - History of Present Illness Initial Comments: this is a 53-year-old white female who presents to the ED via EMS with complaints of shortness of breath. EMS states that the patient was talking to them on arrival about some low back pain. Upon arrival she has not able to give much of her history and most of it is taken from the son who is at bedside. Son does not live with her. He states that he did see her yesterday and she was reported to be in good spirits and looking better than the day before. She was recently seen in the ED and sent home on outpatient treatment with a Z-Michele. She is a heavy smoker and does not have home O2. He states that she does not use nebulize treatments regularly either. He states that she was only treated for hypertension and has not had any cardiac stents or bypass. She was noted to be 88% on room air upon arrival. She did receive 1 nebulized treatment in route. Severity: severe Allergies/Adverse Reactions: Allergies Codeine Adverse Reaction (Mild, Verified 01/31/19 18:38) Other itching Home Medications: Ambulatory Orders RX: HYDROcodone 10MG/APAP 325MG [[place] 10/325] 1 tab PO QID PRN 08/05/15 RX: Amitriptyline HCl [Elavil] 100 mg PO DAILY 02/28/16 RX: Baclofen 20 mg PO BID 02/28/16 RX: Gabapentin 600 mg PO TID 02/28/16 RX: Ondansetron Odt [Zofran Odt] 4 mg PO .Q8H PRN 02/28/16 RX: Cyclobenzaprine HCl [Flexeril] 10 mg PO TID 01/31/19 RX: Diclofenac Potassium 50 mg PO TID 01/31/19 RX: Fenofibrate 160 mg PO DAILY 01/31/19 RX: Ibuprofen 800 mg PO BID PRN 01/31/19 RX: Lisinopril & Hydrochlorothiazi [Lisinopril/Hctz 10-12.5 mg] 1 tab PO DAILY 01/31/19 RX: Metformin HCl [Metformin HCl ER] 500 mg PO BID 01/31/19 RX: Metoprolol Tartrate 50 mg PO BID 01/31/19 RX: Paroxetine HCl 20 mg PO DAILY 01/31/19 RX: Diazepam 02/01/19 Albuterol Sulfate [Albuterol Sulfate Hfa] 2 inh INH QID 30 Days #1 aer 02/02/19 RX: Doxycycline (Monohydrate) [Doxycycline Monohydrate] 100 mg PO BID 7 Days #14 tab 02/02/19 RX: predniSONE 40 mg PO DAILY 30 Days #30 tab 02/02/19 RX: Azithromycin Tab [Zithromax Tab] 250 mg PO DAILY 5 Days #6 tab 02/16/19 Review of Systems - Review of Systems Constitutional: States: fever EENTM: States: no symptoms reported Respiratory: States: cough, short of breath Cardiology: States: no symptoms reported Gastrointestinal/Abdominal: States: no symptoms reported Genitourinary: States: no symptoms reported Musculoskeletal: States: back pain Skin: States: no symptoms reported Neurological: States: no symptoms reported Endocrine: States: no symptoms reported Hematologic/Lymphatic: States: no symptoms reported Unable to Obtain Due To: clinical condition Past Medical History (General) - Patient Medical History Hx Seizures: No Hx Stroke: No Hx Asthma: No Hx of COPD: No Hx Cardiac Disorders: Yes Hx Congestive Heart Failure: No Hx Pacemaker: No Hx Hypertension: Yes Hx Diabetes: Yes Hx MRSA: No - Vaccination History Hx Influenza Vaccination: No Hx Pneumococcal Vaccination: No - Social History Hx Tobacco Use: Yes Hx Alcohol Use: Yes - states long time ago 20yr Hx Substance Use: Yes - " same" Hx Physical Abuse: No Hx Emotional Abuse: No Family Medical History - Family History Mother Family History: Unknown Living Status: Unknown Physical Exam - Physical Exam General Appearance: Obvious distress, Ill Appearing Eyes, Ears, Nose, Throat Exam: PERRL/EOMI, other - dry oropharynx Neck: non-tender, supple Respiratory: respiratory distress, accessory muscle use, rhonchi - mostly right sided in the upper and lower lobes Cardiovascular/Chest: normal peripheral pulses, no edema, no murmur, tachycardia Peripheral Pulses: radial,right: 2+, radial,left: 2+, dorsalis pedis,right: 2+, dorsalis pedis,left: 2+ Gastrointestinal/Abdominal: normal bowel sounds, non tender, other - obese Rectal Exam: deferred Extremity: normal range of motion 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 Patient has not received her fluid bolus yet. medications are at bedside ready to give following obtaining all labs. X-ray is also standing by. Patient noted to have heart rate of 130 currently. Oxygen saturations are at 98% with neb being given 02/19/19 07:26 ABG is back pH of 7.4 PCO2 35 PaO2 is 123 HCO3 21.4 base is -2.4 we will plan on getting all meds and bolus in and see how patient responds. May need to perform BiPAP. 02/19/19 07:36 spoke with the son and updated him on the patient's progress. Still awaiting x- ray evaluation. Solu-Medrol is in. Antibiotics are hung. Bolus is going in. 02/19/19 07:48 patient's O2 sats are now 96% and that was on 5 L nasal cannula. We are turning that down some currently. She has not had her x-ray they have been called to come back and get that done. Systolic pressure 110 with first liter going in we'll hang a second one when that is complete. 02/19/19 08:00 x-ray complete and noted to have infiltrates present on the right side. No pleural effusions noted. Cardiomegaly is also noted. 02/19/19 08:15 hospitalist consulted and agrees with admission 02/19/19 08:20 [facility] is accepting hospitalist. 02/19/19 09:04 patient is still in the ER currently, was asked by the nurse to take another look at her, patient noted to have some basilar rales, heart rate is improved to 113, will give another nebulized treatment as well as a little Lasix IV. - Results/Orders Results/Orders: IMPRESSION: Right upper lobe pneumonia and volume loss. Bibasilar atelectasis. Worsened since prior study. Electronically signed by: Dave Barger MD 02/19/2019 8:10 AM ROLLER MAN 02/19/19 06:57 IV:Start .ONCE BLOOD CULTURE Stat Arterial Blood Gas Stat Chest,1 View [RAD] Stat CREATINE KINASE ISOENZYMES Stat 02/19/19 07:00 EKG STAT 02/19/19 07:05 IV Care:Saline Lock per Protoc QSHIFT Telemetry .ONCE Sodium Chloride 0.9% (Flush) [Saline Flush Syringe] 10 ml IV PRN PRN EKG Stat Pulse Ox Stat URINALYSIS Stat 02/19/19 07:50 BOLUS Sodium Chloride 0.9% 1000ML [Ns 1000 ml] 1,000 ml IVS ONCE 02/19/19 08:17 URINE DRUG SCREEN, 7 ASSAY Stat 02/19/19 09:15 LACTIC ACID Q2H 02/19/19 11:15 LACTIC ACID Q2H 02/19/19 13:15 LACTIC ACID Q2H 02/19/19 15:15 LACTIC ACID Q2H 02/19/19 17:15 LACTIC ACID Q2H 02/19/19 19:15 LACTIC ACID Q2H 02/19/19 21:15 LACTIC ACID Q2H 02/19/19 23:15 LACTIC ACID Q2H 02/20/19 01:15 LACTIC ACID Q2H 02/20/19 03:15 LACTIC ACID Q2H 02/20/19 05:15 LACTIC ACID Q2H Laboratory Results - last 24 hr 02/19/19 02/19/19 02/19/19 07:00 07:35 07:35 WBC 10.8 RBC 4.10 L Hgb 11.9 L Hct 36.0 MCV 87.8 MCH 29.1 MCHC 33.1 RDW 13.7 Plt Count 289 MPV 9.0 Absolute Neuts (auto) 9.70 H Absolute Lymphs (auto) 0.60 L Absolute Monos (auto) 0.50 Absolute Eos (auto) 0.00 Absolute Basos (auto) 0.10 Neutrophils % 89.5 H Lymphocytes % 5.4 L Monocytes % 4.3 Eosinophils % 0.3 L Basophils % 0.5 PT INR PTT (SP) D-Dimer, Quantitative pCO2 35 pO2 123 H* HCO3 21.4 ABG pH 7.400 ABG O2 Saturation 99.4 H ABG Base Excess -2.4 ABG Deoxyhemoglobin 0.5 Oxyhemoglobin % 95.5 Carboxyhemoglobin % 2.2 H Methemoglobin % Sat 1.8 H Calc Total Hemoglobin 12.0 Sodium 135 Potassium 4.6 Chloride 98 L Carbon Dioxide 24 Anion Gap 17.6 BUN 19 H D Creatinine 2.01 H D BUN/Creatinine Ratio 9.5 L Random Glucose 153 H Serum Osmolality 275.4 Lactic Acid Calcium 8.8 Total Bilirubin 0.4 AST 25 ALT 31 Alkaline Phosphatase 136 H Troponin I Serum Total Protein 7.1 Albumin 3.5 Globulin 3.6 H Albumin/Globulin Ratio 1.0 L 02/19/19 02/19/19 02/19/19 07:35 07:35 07:35 WBC RBC Hgb Hct MCV MCH MCHC RDW Plt Count MPV Absolute Neuts (auto) Absolute Lymphs (auto) Absolute Monos (auto) Absolute Eos (auto) Absolute Basos (auto) Neutrophils % Lymphocytes % Monocytes % Eosinophils % Basophils % PT 9.2 INR 0.92 PTT (SP) 26.2 D-Dimer, Quantitative 0.91 H* pCO2 pO2 HCO3 ABG pH ABG O2 Saturation ABG Base Excess ABG Deoxyhemoglobin Oxyhemoglobin % Carboxyhemoglobin % Methemoglobin % Sat Calc Total Hemoglobin Sodium Potassium Chloride Carbon Dioxide Anion Gap BUN Creatinine BUN/Creatinine Ratio Random Glucose Serum Osmolality Lactic Acid 1.8 Calcium Total Bilirubin AST ALT Alkaline Phosphatase Troponin I < 0.02 Serum Total Protein Albumin Globulin Albumin/Globulin Ratio - EKG/XRAY/CT EKG: Sinus, Tachy, no ST T wave changes Departure - Departure Clinical Impression: Hypoxemia, Septicemia Pneumonia Qualifiers: Pneumonia type: due to unspecified organism Laterality: right Lung location: middle lobe of lung Qualified Code(s): J18.1 - Lobar pneumonia, unspecified organism Time of Disposition: :18 Disposition: Admit Patient Condition: Serious Home Medications: Ambulatory Orders RX: HYDROcodone 10MG/APAP 325MG [[place] 10/325] 1 tab PO QID PRN 08/05/15 RX: Amitriptyline HCl [Elavil] 100 mg PO DAILY 02/28/16 RX: Baclofen 20 mg PO BID 02/28/16 RX: Gabapentin 600 mg PO TID 02/28/16 RX: Ondansetron Odt [Zofran Odt] 4 mg PO .Q8H PRN 02/28/16 RX: Cyclobenzaprine HCl [Flexeril] 10 mg PO TID 01/31/19 RX: Diclofenac Potassium 50 mg PO TID 01/31/19 RX: Fenofibrate 160 mg PO DAILY 01/31/19 RX: Ibuprofen 800 mg PO BID PRN 01/31/19 RX: Lisinopril & Hydrochlorothiazi [Lisinopril/Hctz 10-12.5 mg] 1 tab PO DAILY 01/31/19 RX: Metformin HCl [Metformin HCl ER] 500 mg PO BID 01/31/19 RX: Metoprolol Tartrate 50 mg PO BID 01/31/19 RX: Paroxetine HCl 20 mg PO DAILY 01/31/19 RX: Diazepam 02/01/19 Albuterol Sulfate [Albuterol Sulfate Hfa] 2 inh INH QID 30 Days #1 aer 02/02/19 RX: Doxycycline (Monohydrate) [Doxycycline Monohydrate] 100 mg PO BID 7 Days #14 tab 02/02/19 RX: predniSONE 40 mg PO DAILY 30 Days #30 tab 02/02/19 RX: Azithromycin Tab [Zithromax Tab] 250 mg PO DAILY 5 Days #6 tab 02/16/19 Comments: admitted to [facility] Critical Care Note - Critical Care Note Total Time (mins): 45 - time spent in reviewing chart, treating respiratory distress, reviewing ABG, and remainder of labs Decision To Admit - Decistion To Admit Decision to Admit Date: 02/19/19 Decision to Admit Time: 08:16
[2019-02-19] MEDS ORDERED: ACETAMINOPHEN IV 1000MG 1,000 MG in PREMIX BOTTLE 1 BOTTLE IVPB ONE ×2 (07:28→07:29)
[2019-02-19] MEDS ORDERED: ACETAMINOPHEN IV 1000MG 100 ML ONE (07:34)
[2019-02-19] MEDS ORDERED: FUROSEMIDE INJ 40 MG/4 ML VIAL IV ONE (09:03)
[2019-02-19] MEDS ORDERED: NALOXONE HCL INJ 0.4 MG/ML VIAL ONE ×3 (09:54→11:00)
[2019-02-19] MEDS ORDERED: LACTATED RINGERS 1,000 ML IVS PRN (10:04)
[2019-02-19] MEDS ORDERED: FLUMAZENIL 0.1 MG/ML VIAL IV ONE (10:08)
[2019-02-19 10:09] VITALS: BP 101/72; TEMP 100.1
--- NOTE | 2019-02-19 10:16 | RAD ---
EXAM DESCRIPTION: XR CHEST 1 VIEW: CR/DR/XR. CLINICAL HISTORY: 53 years Female sob COMPARISON: 2 view chest 16 February 2019. TECHNIQUE: ONE VIEW PORTABLE. AP 712 hours, upright position. FINDINGS: Consolidation in the right upper lobe and volume loss with unfavorable interval change since the prior study. Increasing infiltrate or atelectasis in the left base. Possible left pleural effusion. Heart size upper normal limits. Crowding bronchovascular markings. Pulmonary vascularity is not increased. IMPRESSION: Right upper lobe pneumonia and volume loss. Bibasilar atelectasis. Worsened since prior study. 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
[2019-02-19] MEDS ORDERED: VANCOMYCIN PER PHARMACY INJ SCH (10:30)
[2019-02-19] MEDS ORDERED: IV SET AND CAP CHANGE INJ INJ SCH (10:30)
[2019-02-19] MEDS ORDERED: CEFEPIME 2 GM in SODIUM CHL 0.9% 50ML MIN-BAG+ 50 ML IVPB SCH (10:30)
[2019-02-19] MEDS ORDERED: ENOXAPARIN SODIUM 40 MG/0.4 ML SYG SUBCU SCH (10:30)
[2019-02-19] MEDS ORDERED: SUCCINYLCHOLINE CHLORIDE 200 MG/10 ML VIAL ONE (10:43)
[2019-02-19] MEDS ORDERED: ETOMIDATE INJECTION 2 MG/ML 20ML VIAL IV ONE (11:00)
[2019-02-19] MEDS ORDERED: MIDAZOLAM INJ 5 MG/5 ML VIAL ONE ×3 (11:00→11:43)
[2019-02-19] MEDS ORDERED: VANCOMYCIN HCL INJ 1,000 MG, VANCOMYCIN HCL INJ 500 MG in SODIUM CHLORIDE 0.9% 250ML 25... IVPB SCH (11:30)
--- NOTE | 2019-02-19 11:53 | RAD ---
EXAM DESCRIPTION: Chest,1 View: CR/DR/XR. CLINICAL HISTORY: 53 years Female ETT and OGT placement. Status post CODE BLUE. COMPARISON: Portable chest x-ray 4 hours earlier. TECHNIQUE: ONE VIEW PORTABLE. AP 1116 hours, supine position. FINDINGS: Endotracheal tube is approximately 2 cm above the mine. Tip of nasogastric tube is curled over the stomach gas left upper quadrant abdomen. Consolidation again noted in right upper lobe. Bilateral perihilar peribronchial wall cuffing and structures are compressed due to supine expiratory technique. IMPRESSION: Endotracheal tube and nasogastric tube are in customary position. A verbal Report was given to the nursing staff the the ct scan technologist prior to patient transportation. 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
[2019-02-19] MEDS ORDERED: IPRATROPIUM/ALBUTEROL 3 ML VIAL INH SCH (12:00)
--- NOTE | 2019-02-19 12:10 | OP ---
SUPERVISING PHYSICIAN: Dimitris Brink MD DATE OF PROCEDURE: 02/19/19 PROCEDURE: 1. Endotracheal intubation. INDICATION: Decreased level of consciousness with a GCS of 8, pneumonia. COMPLICATIONS: None. PROVIDER: KELL[facility]ang PROCEDURE: The patient was pre-oxygenated with 100% oxygen via Ambu bag. 20 mg of etomidate along with 80 mg of succinylcholine were given for rapid sequence intubation. The GlideScope was used to visualize the vocal cords. A 7.5 endotracheal tube was passed through the vocal cords times one pass. The stylet was removed and the cuff was inflated. It was then connected to the Ambu bag for ventilation. Tube placement was verified using tube condensation, end-tidal CO2 detection as well as chest auscultation. A chest x-ray was also ordered and confirmed appropriate placement of endotracheal tube. [facility][id number] [facility]
--- NOTE | 2019-02-19 13:31 | SSS ---
SUPERVISING PHYSICIAN: Dimitris Brink MD CHIEF COMPLAINT: Altered mental status and shortness of breath. HISTORY OF PRESENT ILLNESS: This is a 53-year-old female who came to the Emergency Room this morning at approximately 6:30. Apparently she had some shortness of breath and on arrival, EMS said she was complaining of some low back pain. She was admitted a couple of weeks ago for pneumonia and discharged a few days later. She also went to the Emergency Room a couple of days ago and was given Z-Michele with no improvement. She does have a history of heavy smoking, but has switched a Juul vaping about 3 months ago according to the daughter. She was seen in the Emergency Room and had decreased level of consciousness. She was hypoxic as well. She was placed on some oxygen. In the Emergency Room, the physician described the patient with altered mental status who would awaken briefly and follow commands. On x-ray, she was found to have a right upper lobe pneumonia. She had a normal white count, but some acute kidney injury as well. However, upon arrival to the Floor, the patient was virtually nonresponsive. She would not awaken to verbal stimuli and basically would only wake up briefly to painful stimuli with a trapezius squeeze. She would immediately go unresponsive again. I gave her a dose of Narcan as her daughter states she takes hydrocodone at home. Drug screen was also done and showed she had a positive drug screen for opiates and benzodiazepines. A dose of Narcan was given, followed by Romazicon with no significant improvement. Two additional doses of Narcan were given with no additional improvement. I spoke with Dr. Brink, my collaborating physician, regarding this and stated she probably needed to be intubated as her GCS was 8. He concurred with this assessment and, therefore, patient was intubated without any difficulties. OG tube was placed at the same time. I then discussed transfer with [facility]. Dr. Hunt was the accepting physician as well as Dr. Fox, the radio despatcher, was contacted as well. The patient will be directly admitted to ICU. I also discussed doing a CT scan of the brain here, but they wanted to hold off and do it there as the interpretation would not be available by the time the patient left this facility. The patient's blood pressure is acceptable with no hypotension and no instability. She is now on the ventilator awaiting transfer to [facility]. PAST MEDICAL HISTORY: 1. Hepatitis C which was reportedly treated in the past, but unsure if it was cured. 2. Hypertension. 3. Chronic tobacco abuse, but now she actually vapes. 4. History of migraine headaches. 5. Degenerative disc disease. 6. Osteoarthritis. 7. Diabetes mellitus. PAST SURGICAL HISTORY: 1. Tonsillectomy and adenoidectomy. 2. Appendectomy. 3. Tubal ligation. MEDICATIONS: 1. Paxil 20 mg daily. 2. Metoprolol 50 mg b.i.d. 3. Metformin 500 mg b.i.d. 4. Lisinopril/HCTZ 10/12.5 mg 1 tablet daily. 5. Ibuprofen 800 mg b.i.d. 6. [place] 10/325 mg 4 times a day as needed. 7. Gabapentin 600 mg t.i.d. 8. Fenofibrate 150 mg daily. 9. Diclofenac 50 mg p.o. t.i.d. 10. Diazepam 10 mg every 6 hours. 11. Flexeril 10 mg t.i.d. 12. Baclofen 20 mg b.i.d. 13. Elavil 100 mg daily. ALLERGIES: CODEINE. FAMILY HISTORY: As stated on her previous chart, her father is at age 56 and had hypertension, diabetes and heart disease. Mother is healthy. One brother had a stroke and has cardiovascular disease and diabetes. Another brother has rheumatoid arthritis. Two brothers from motor vehicle accident. SOCIAL HISTORY: History of smoking, but she also vapes and has done so for the last 3 months or so. No alcohol, no illicit drugs. REVIEW OF SYSTEMS: Cannot be completed due to the patient's mental status. PHYSICAL EXAMINATION: VITAL SIGNS: Blood pressure 101/72. Heart rate 118. Respiratory rate 24. Temperature 100.1. Oxygen saturation 95%. GENERAL: Ms. Howard is a 53-year-old female who is in critical condition at this time. NEUROLOGIC: The patient is now sedated, but prior to this was obtunded with GCS of 8. CHEST: Bilateral rhonchi with no active wheezing. CARDIOVASCULAR: Regular rate and rhythm with some sinus tachycardia per the monitor. ABDOMEN: Soft. Positive bowel sounds. No evidence of tenderness to palpation. GENITOURINARY: Deferred. EXTREMITIES: Lower extremities with no significant edema. Pulses 2+. Capillary refill is less than 2 seconds. LABORATORY: Chest x-ray reviewed shows a right upper lobe pneumonia and left costophrenic angle blunting consistent with effusion versus atelectasis versus pneumonia. White count 10.8, hemoglobin 11.9, hematocrit 36.0, platelet count 289. Coag studies were normal, but D-dimer elevated at 0.91. ABG was done and showed pH of 7.4, pCO2 35, pO2 123, bicarb 21.4, base excess -2.4 and that was prior to intubation. Chemistry shows elevated BUN 19, creatinine 2.01, glucose 153, lactic acid 1.8 and repeat was 1.1. Urinalysis not consistent with urinary tract infection. Drug screen positive for opiates and benzodiazepines. ASSESSMENT: 1. Acute respiratory failure secondary to pneumonia as well as altered mental status. 2. Right upper lobe pneumonia, possibly aspiration versus healthcare associated pneumonia. 3. Altered mental status secondary to unintentional prescription drug overdose versus metabolic encephalopathy versus another cause with CT scan of the brain pending at [facility]. 4. Acute on chronic kidney disease. 5. Diabetes mellitus, type 2. 6. Hypertension. 7. Chronic pain syndrome. PLAN: The patient was admitted briefly with treatment for healthcare associated pneumonia, however, due to her mental status and lack of response to reversal agents, she was intubated and will be transferred to [facility]. I did discuss the transfer with Dr. Hunt at [facility] as well as Dr. Fox, the radio despatcher in the ICU. The patient will get a CT scan of the brain when the patient arrives to [facility]. DVT and GI ulcer prophylaxis was also ordered, however, will be initiated at [facility]. I discussed care with the family and they were in agreement. Her daughter is at the bedside and she has an aunt and son there as well. Total critical care time is 90 minutes. This was spent in coordination of care with the nursing staff, chart review, order entry technician, discussion with the accepting physicians at the other hospital and post intubation management. This time was exclusive of procedure time. #[id number] [facility]
[2019-02-19 14:14] VITALS: O2SAT 96
[2019-02-20] MEDS ORDERED: PANTOPRAZOLE SODIUM IV 40 MG VIAL IV SCH (06:30)
== END 2019-02-19 11:40 | disposition short-term general hospital (02) | DRG 208 ==
LOC: ER 06:31 → OBSVTOIN 09:09 → MS 09:09
PROVIDERS: ADMIT Nurse Practitioner; ATTEND Nurse Practitioner
PROC: 0BH17EZ Insertion of Endotracheal Airway into Trachea, Via Natural or Artificial Opening (ICD-10-PCS; principal; 2019-02-19)
PROC: 5A1935Z Respiratory Ventilation, Less than 24 Consecutive Hours (ICD-10-PCS; 2019-02-19)
DX: J96.01 Acute respiratory failure with hypoxia (principal); J18.9 Pneumonia, unspecified organism; N17.9 Acute kidney failure, unspecified; G93.41 Metabolic encephalopathy; R40.2433 Glasgow coma scale score 3-8, at hospital admission; B19.20 Unspecified viral hepatitis C without hepatic coma; I12.9 Hypertensive chronic kidney disease with stage 1 through stage 4 chronic kidney disease, or unspecified chronic kidney disease; M19.90 Unspecified osteoarthritis, unspecified site; E11.22 Type 2 diabetes mellitus with diabetic chronic kidney disease; N18.9 Chronic kidney disease, unspecified; G89.4 Chronic pain syndrome; T40.2X1A Poisoning by other opioids, accidental (unintentional), initial encounter; R41.82 Altered mental status, unspecified; F17.290 Nicotine dependence, other tobacco product, uncomplicated; Y92.9 Unspecified place or not applicable; Z79.891 Long term (current) use of opiate analgesic; Z79.84 Long term (current) use of oral hypoglycemic drugs; Z79.1 Long term (current) use of non-steroidal anti-inflammatories (NSAID); Z88.5 Allergy status to narcotic agent; Z79.899 Other long term (current) drug therapy; Y95 Nosocomial condition

== ENCOUNTER → 2019-04-17 | Outpatient (CLI) | payer OTHER ==
--- NOTE | 2019-04-17 16:38 | RAD ---
EXAM DESCRIPTION: Hip,Right 2 Views CLINICAL HISTORY: 53 years Female, RT HIP PAIN COMPARISON: None available. TECHNIQUE: 2 views of the right hip. FINDINGS: The visualized bones are well-mineralized.No acute fracture or dislocation. Mild right hip osteoarthritis. The soft tissues appear grossly unremarkable. IMPRESSION: Mild right hip osteoarthritis. Electronically signed by: Casey Servin MD 04/17/2019 4:37 PM [facility]
--- NOTE | 2019-04-17 16:38 | RAD ---
EXAM DESCRIPTION: Pelvis CLINICAL HISTORY: 53 years Female, PAIN COMPARISON: None. TECHNIQUE: AP radiograph of the pelvis was performed. FINDINGS: The pelvic ring appears grossly intact on this single AP radiograph. No acute fracture or dislocation. Bilateral sacroiliac joints appear normal. Mild bilateral hip osteoarthritis. Osteitis pubis. The visualized lumbo-sacral spine demonstrates mild degenerative changes. IMPRESSION: Single AP radiograph of the pelvis demonstrates grossly intact pelvic ring. Mild bilateral hip osteoarthritis. Osteitis pubis. Electronically signed by: Casey Servin MD 04/17/2019 4:36 PM [facility]
== END ==
LOC: RAD 12:19
PROVIDERS: ATTEND Nurse Practitioner
DX: M16.0 Bilateral primary osteoarthritis of hip (principal)

== ENCOUNTER → 2020-01-12 | Outpatient (CLI) | payer OTHER ==
--- NOTE | 2020-01-13 09:29 | CT ---
Procedure: CT LUNG SCREENING Exam Date: January 12, 2020. Ordering Provider: Arina Alberts Clinical Indication: NICOTINE DEPENDENCE . Current cigarette smoker. 25 pack years. This patient meets eligibility criteria for low-dose CT lung cancer screening. Comparison: Low-dose CT lung cancer screening examination December 2018. Lung RADS 2. Technique: Using a multislice scanner, sequential helical axial imaging was obtained in the thorax, 2.5 mm thickness, 2.5 mm separation, from the level of the thoracic inlet through the lung bases without IV contrast. A low dose protocol was utilized for BMI less than 30: BMI: 29.5. CTDI: 1.76 mGy. 120. kVp. 45 mA. DLP 61 mGy-cm. 2D sagittal and coronal reconstructed images, 6.0 mm thickness, were obtained. This exam was performed according to our departmental dose optimization program which includes use of automated exposure control, adjustment of the mA and/or kV according to patient size and/or use of iterative reconstruction technique. Nodule measurements under 10 mm are given as mean value of 3 axes diameters. FINDINGS: Lungs and large airways: Small nodular density abutting the anterior mediastinum and medial pleura anterior right upper lobe on image 34 from axial series 2 is stable. Stable thickening or para fissural nodule medial inferior right major fissure on images 2/75- 76. Bilateral small parenchymal blebs in a centrilobular distribution are stable. Bilateral perihilar peribronchial wall cuffing is mild with no interval change. No new nodules and no mass. No new or focal infiltrates. Pleura and space: Minimal pleural-parenchymal scarring is stable, with no acute process. Mediastinum and naomy: evaluation limited by low dose technique and lack of IV contrast. Small lymph nodes showing no interval change with no dominant soft tissue mass. Heart and great vessels: Coronary artery calcifications and calcifications in the coronary artery sinus, aortic arch and innominate artery. Minimal thickening of pericardium is stable. Chest wall, lower neck, axillae: Evaluation also limited by same factors as described above. Focal asymmetry in the lateral and bilateral upper quadrant of the left breast not well seen on the prior study. Thyroid gland visualized. Normal size axillary nodes but no dominant soft tissue mass. Upper abdomen: Evaluation limited by low-dose technique. Atherosclerotic calcifications. No free air or free fluid in the included peritoneal space. Osseous structures: Evaluation limited by low dose MIP technique. Spondylosis midthoracic spine. Minimal arthrosis bilateral glenohumeral joints. IMPRESSION: 1. Stable pleural nodule versus pleural nodule medial right upper lobe, and diameter below threshold for requiring follow-up. Minimal emphysematous changes upper lung baptiste are stable. No new nodular no mass. No new focal infiltrate.. [facility] Best Practice Recommendations: please see below for Lung RADS category and FOLLOW-UP.* *Lung RADS category Category 1 - No nodule or definitely benign nodules (probability of malignancy less than 1%). Follow-up: Continue annual screening with Low Dose Chest CT in 12 months. Electronically signed by: Dave Barger MD 01/13/2020 9:27 AM CDT
== END ==
LOC: CT 07:46
PROVIDERS: ATTEND Nurse Practitioner
DX: Z87.891 Personal history of nicotine dependence (principal); R91.1 Solitary pulmonary nodule; J43.9 Emphysema, unspecified; Z12.2 Encounter for screening for malignant neoplasm of respiratory organs; Z72.0 Tobacco use

== ENCOUNTER → 2020-04-25 | Outpatient (CLI) | payer OTHER | LOC: YCFC.O 15:52 | PROVIDERS: ATTEND Family Medicine | DX: Z11.59 Encounter for screening for other viral diseases (principal) ==